=== PATIENT | male | born 1955 | race Caucasian/White ===

== ENCOUNTER 2018-04-15 23:36 | Observation (INO) | payer OTHER ==
[~2018-04-15] VITALS: Ht 190.5 cm; Wt 131.4 kg
[2018-04-16] VITALS (14 sets, daily range): BP systolic 117–174; BP diastolic 79–116
[2018-04-16 00:06] LABS: HEMATOCRIT 50.8 % (38.0-50.0); HEMOGLOBIN 17.2 G/DL (12.5-16.6); MCH 29.2 PG (29.0-34.0); MCHC 33.9 G/DL (30.0-36.0); MCV 86.1 FL (86-99); PLATELET COUNT 278 K/uL (156-360); RBC DIS.WIDTH-CV 13.1 % (11.8-14.6); RBC DIS.WIDTH-SD 40.1 % (39-53); WHITE BLOOD COUNT 17.8 K/uL (4.1-10.2)
[2018-04-16 00:11] LABS: INTER. NORMALIZED RATIO 1.1
[2018-04-16 00:14] LABS: PTT 26.1 SEC (25-37)
[2018-04-16 00:15] LABS: BASE EXCESS -0.6 mEq/L (-3 to +3); BICARBONATE 24.9 mEq/L (22-26); CARBOXY HGB 2.3 % (0-5); COMMENTS - BLOOD GASES C+A+; DEVICE NIV; FI02 40 %; MODE SPONT; O2 SATURATION (CALCULATED) 98.6 % (95-99); PCO2 43 mm Hg (35-45); PEEP 8 CM/H20; PO2 88 mm Hg (80-100); PRES. SUPPORT 12 CM/H2O; SITE LR; TOTAL RESP RATE 32 resp/min; pH 7.37 (7.35-7.45)
[2018-04-16 00:19] LABS: ALBUMIN 4.6 g/dL (3.2-4.8); CHLORIDE 107 mEq/L (99-109); POTASSIUM 3.8 mEq/L (3.7-5.4); SODIUM 142 mEq/L (136-147)
[2018-04-16 00:21] LABS: GLUCOSE 256 mg/dL (70-99); TOTAL PROTEIN 7.6 g/dL (6.4-8.3)
[2018-04-16 00:23] LABS: TOTAL BILIRUBIN 0.9 mg/dL (0.0-1.0)
[2018-04-16 00:25] LABS: ALKALINE PHOSPHATASE 85 IU/L (3-129); CREATININE 1.3 mg/dL (0.6-1.3); GFR ESTIMATE (CALCULATED) > 59 mL/min/ (58.99-99999)
[2018-04-16 00:26] LABS: UREA NITROGEN (BUN) 15 mg/dL (9-23)
[2018-04-16 00:27] LABS: AST (GOT) 39 IU/L (2-34)
[2018-04-16 00:28] LABS: ALT (GPT) 59 IU/L (3-49)
[2018-04-16 00:34] LABS: TROP-I INTERPRETATION NEGATIVE; TROPONIN-I < 0.01 ng/mL (0.0-0.30)
[2018-04-16] MEDS ORDERED: BYETTA10 MCG/0.0 SC (01:07)
[2018-04-16] MEDS ORDERED: ACARBOSE50 MG PO (01:07)
[2018-04-16] MEDS ORDERED: PRECOSE50 MG PO (01:08)
[2018-04-16] MEDS ORDERED: CENTRUM SILVER1 EAC1 PO (01:09)
[2018-04-16] MEDS ORDERED: VITAMIN E400 UNIT PO (01:11)
[2018-04-16] MEDS ORDERED: SIMVASTATIN40 MG PO (01:12)
[2018-04-16] MEDS ORDERED: METAGLIP 5/51 TABLET PO (01:12)
[2018-04-16] MEDS ORDERED: LEVEMIR FL100 UNIT/1 SC (01:13)
[2018-04-16] MEDS ORDERED: ATENOLOL100 MG PO (01:14)
[2018-04-16] MEDS ORDERED: METHIMAZOLE5 MG PO (01:14)
[2018-04-16] MEDS ORDERED: GLIPIZIDE-METF1 EAC2 PO (01:15)
[2018-04-16 06:04] LABS: TROP-I INTERPRETATION NEGATIVE; TROPONIN-I 0.26 ng/mL (0.0-0.30)
[2018-04-16 06:07] LABS: MAGNESIUM 1.8 mg/dl (1.3-2.7); PHOSPHORUS 3.3 mg/dL (2.5-4.9)
[2018-04-16 06:30] LABS: HEMATOCRIT 43.5 % (38.0-50.0); MCH 29.3 PG (29.0-34.0); MCHC 34.3 G/DL (30.0-36.0); MCV 85.5 FL (86-99); RBC DIS.WIDTH-CV 13.1 % (11.8-14.6); RBC DIS.WIDTH-SD 40.1 % (39-53); RED BLOOD COUNT 5.09 M/uL (4.00-5.50); WHITE BLOOD COUNT 11.6 K/uL (4.1-10.2)
[2018-04-16 06:41] LABS: HEMOGLOBIN 14.9 G/DL (12.5-16.6)
[2018-04-16 07:45] LABS: PLAT.SUFFICIENCY ADEQUATE
[2018-04-16 07:52] LABS: PLATELET COUNT 172 K/uL (156-360)
[2018-04-16 12:59] LABS: TROP-I INTERPRETATION INDETERMINATE; TROPONIN-I 0.38 ng/mL (0.0-0.30)
[2018-04-16 18:20] LABS: TROP-I INTERPRETATION INDETERMINATE; TROPONIN-I 0.32 ng/mL (0.0-0.30)
[2018-04-17 03:08] VITALS: BP 154/91
[2018-04-17 05:19] LABS: HEMATOCRIT 40.5 % (38.0-50.0); HEMOGLOBIN 13.8 G/DL (12.5-16.6); MCH 29.2 PG (29.0-34.0); MCHC 34.1 G/DL (30.0-36.0); MCV 85.8 FL (86-99); PLATELET COUNT 156 K/uL (156-360); RBC DIS.WIDTH-CV 13.1 % (11.8-14.6); RBC DIS.WIDTH-SD 40.4 % (39-53); RED BLOOD COUNT 4.72 M/uL (4.00-5.50); WHITE BLOOD COUNT 7.9 K/uL (4.1-10.2)
[2018-04-17 05:41] LABS: TROP-I INTERPRETATION NEGATIVE; TROPONIN-I 0.17 ng/mL (0.0-0.30)
[2018-04-17 06:13] LABS: ALBUMIN 3.5 G/DL (3.2-4.8); ALKALINE PHOSPHATASE 45 IU/L (3-129); ALT (GPT) 30 IU/L (3-49); AST (GOT) 17 IU/L (2-34); CHLORIDE 103 MEQ/L (99-109); GFR ESTIMATE (CALCULATED) > 59 mL/min/ (58.99-99999); GLUCOSE 187 mg/dL (70-99); MAGNESIUM 1.8 mg/dl (1.3-2.7); POTASSIUM 4.2 MEQ/L (3.7-5.4); SODIUM 141 MEQ/L (136-147); TOTAL BILIRUBIN 1.1 MG/DL (0.0-1.0); TOTAL PROTEIN 5.5 G/DL (6.4-8.3); UREA NITROGEN (BUN) 16 mg/dL (9-23)
[2018-04-17 06:15] LABS: PHOSPHORUS 4.5 mg/dL (2.5-4.9)
[2018-04-17] MEDS ORDERED: XARELTO20 MG PO (06:50)
[2018-04-17] MEDS ORDERED: CORDARONE200 MG PO (06:51)
[2018-04-17] MEDS ORDERED: ZESTRIL20 MG PO (06:56)
[2018-04-17] MEDS ORDERED: CRESTOR20 MG PO (06:56)
== END 2018-04-17 09:06 | disposition home or self-care (01) ==
LOC: EME → EDBD 23:36 → 5EAST 04-16 01:01 → 4WEST 04-16 01:01 → EDOF 04-16 01:01 → ENRESERV 04-16 01:05 → 5EAST 04-16 01:42 → 4WEST 04-16 01:45 → ENRESERV 04-16 10:28 → 5EAST 04-16 11:00
PROVIDERS: Emergency Medicine; Internal Medicine
PROC: B246ZZZ Ultrasonography of Right and Left Heart (ICD-10-PCS; principal; 2018-04-16)
DX: I16.1 Hypertensive emergency (principal); I11.0 Hypertensive heart disease with heart failure; I50.31 Acute diastolic (congestive) heart failure; I48.91 Unspecified atrial fibrillation; E66.9 Obesity, unspecified; Z68.36 Body mass index [BMI] 36.0-36.9, adult; E78.5 Hyperlipidemia, unspecified; E11.65 Type 2 diabetes mellitus with hyperglycemia; E05.90 Thyrotoxicosis, unspecified without thyrotoxic crisis or storm; Z82.49 Family history of ischemic heart disease and other diseases of the circulatory system; E66.01 Morbid (severe) obesity due to excess calories; R74.0 Nonspecific elevation of levels of transaminase and lactic acid dehydrogenase [LDH]; N17.9 Acute kidney failure, unspecified; D72.829 Elevated white blood cell count, unspecified; Z79.4 Long term (current) use of insulin; I27.20 Pulmonary hypertension, unspecified
CPT/HCPCS: 36600; 71045; 80053; 82948; 83735; 83880; 84100; 84443; 84484; 85027; 85610; 85730; 87070; 87205; 87641; 93005; 93306; 94002; 94799; 99281; 99285; G0378; J1650; J1815; J1940; J3475; S0028